=== PATIENT | male | born 1980 | race Caucasian/White ===

== ENCOUNTER 2017-09-14 21:11 | Emergency (ER) | payer BC ==
[~2017-09-14] VITALS: Ht 167.6 cm; Wt 90.7 kg
[~2017-09-14 21:11] MED LIST: LISINOPRIL-HCT1 EAC1 PO; PRAVASTATIN SOD40 MG PO; PREDNISONE20 MG PO; PROAIR HFA8.5 GM INH
[2017-09-14] MEDS ORDERED: FLUTICASONE PRO16 GM NAS (21:24)
[2017-09-14] MEDS ORDERED: HYDROXYZINE HCL25 MG PO (22:36)
== END 2017-09-14 22:50 | disposition home or self-care (01) ==
LOC: ED 21:11
DX: L50.9 Urticaria, unspecified (principal); I10 Essential (primary) hypertension; F17.200 Nicotine dependence, unspecified, uncomplicated; Z88.6 Allergy status to analgesic agent; Z88.8 Allergy status to other drugs, medicaments and biological substances; Z79.899 Other long term (current) drug therapy
CPT/HCPCS: 80053; 81001; 85025; 99283

== ENCOUNTER 2018-09-17 19:21 | Emergency (ER) | payer BC ==
[~2018-09-17] VITALS: Ht 167.6 cm; Wt 81.7 kg
[~2018-09-17 19:21] MED LIST changes: +FLUTICASONE PRO16 GM NAS; +HYDROXYZINE HCL25 MG PO
[2018-09-17] MEDS ORDERED: MECLIZINE HCL25 MG PO (21:37)
[2018-09-17] MEDS ORDERED: TRANSDERM-SCOP1 EACH TD (21:37)
== END 2018-09-17 21:51 | disposition home or self-care (01) ==
LOC: ED 19:21
DX: H81.399 Other peripheral vertigo, unspecified ear (principal); I10 Essential (primary) hypertension; E78.00 Pure hypercholesterolemia, unspecified; F17.200 Nicotine dependence, unspecified, uncomplicated; Z88.8 Allergy status to other drugs, medicaments and biological substances; Z79.899 Other long term (current) drug therapy
CPT/HCPCS: 70450; 80053; 85025; 99284-25

== ENCOUNTER 2018-12-28 11:10 | Emergency (ER) | payer BC ==
[~2018-12-28] VITALS: Ht 167.6 cm; Wt 83.9 kg
[~2018-12-28 11:10] MED LIST changes: +MECLIZINE HCL25 MG PO; +TRANSDERM-SCOP1 EACH TD
--- OUTSIDE RECORDS SUMMARY | 2018-12-28 11:12 | XMS ---
PreManage Notification: AMY MCCOY Security Clinical Quality Assurance Associate Events No recent Security Events currently on file CRITERIA MET - [facility] - 2 Visits in 30 Days CARE PROVIDERS There are no care providers on record at this time. Teresa has no Care Guidelines for this patient. [place] VISIT COUNT (12 MO.) [address] [facility] TOTAL 3 NOTE: Visits indicate total known visits. ED/C VISIT TRACKING (12 MO.) 12/28/2018 11:11 [facility] [place] TYPE: Emergency COMPLAINT: - SOB, ARM/LEG TINGLING 12/25/2018 20:38 [facility] TYPE: Emergency COMPLAINT: - SOB 09/17/2018 19:22 [facility] [place] TYPE: Emergency COMPLAINT: - DIZZY/WEAKNESS DIAGNOSES: - Dizziness and giddiness - Other manager long term care (current) drug therapy - Other peripheral vertigo, unspecified ear - Nicotine dependence, unspecified, uncomplicated - Pure hypercholesterolemia, unspecified - Allergy status to other drugs, medicaments and biological substances status - Essential (primary) hypertension INPATIENT VISIT TRACKING (12 MO.) No inpatient visits to display in this time frame [email or web address]
== END 2018-12-28 12:08 | disposition home or self-care (01) ==
LOC: ED 11:10
DX: F41.9 Anxiety disorder, unspecified (principal); I10 Essential (primary) hypertension; E78.00 Pure hypercholesterolemia, unspecified; J45.909 Unspecified asthma, uncomplicated; F17.200 Nicotine dependence, unspecified, uncomplicated; Z88.8 Allergy status to other drugs, medicaments and biological substances; Z88.6 Allergy status to analgesic agent; Z79.899 Other long term (current) drug therapy
CPT/HCPCS: 99284

== ENCOUNTER 2019-01-02 08:24 | Emergency (ER) | payer BC ==
[~2019-01-02] VITALS: Ht 167.6 cm; Wt 83.9 kg
--- OUTSIDE RECORDS SUMMARY | 2019-01-02 08:26 | XMS ---
PreManage Notification: AMY MCCOY Security Child Day Care Provider Events No recent Security Events currently on file CRITERIA MET - [facility] - 2 Visits in 30 Days CARE PROVIDERS LARA LERNER Physician Housing Assistant 12/29/2018-Current PHONE: Unknown Teresa has no Care Guidelines for this patient. [place] VISIT COUNT (12 MO.) 4 [facility] TOTAL 4 NOTE: Visits indicate total known visits. ED/UCC VISIT TRACKING (12 MO.) 01/02/2019 08:25 [facility] [place] TYPE: Emergency COMPLAINT: - BLURRY VISION/L ARM WEAKNESS 12/28/2018 11:11 [facility] [place] TYPE: Emergency COMPLAINT: - SOB, ARM/LEG TINGLING DIAGNOSES: - Pure hypercholesterolemia, unspecified - Allergy status to analgesic agent status - Allergy status to other drugs, medicaments and biological substances status - Essential (primary) hypertension - Unspecified asthma, uncomplicated - Nicotine dependence, unspecified, uncomplicated - Other nursing home (current) drug therapy - Anxiety disorder, unspecified - Shortness of breath 12/25/2018 20:38 [facility] [place] TYPE: Emergency COMPLAINT: - SOB DIAGNOSES: - Other nursing home (current) drug therapy - Unspecified asthma, uncomplicated - Dyspnea, unspecified - Shortness of breath - Allergy status to analgesic agent status - Essential (primary) hypertension - Nicotine dependence, unspecified, uncomplicated - Allergy status to other drugs, medicaments and biological substances status 09/17/2018 19:22 [facility] [place] TYPE: Emergency COMPLAINT: - DIZZY/WEAKNESS DIAGNOSES: - Dizziness and giddiness - Other local intermodal truck driver (current) drug therapy - Other peripheral vertigo, unspecified ear - Nicotine dependence, unspecified, uncomplicated - Pure hypercholesterolemia, unspecified - Allergy status to other drugs, medicaments and biological substances status - Essential (primary) hypertension INPATIENT VISIT TRACKING (12 MO.) No inpatient visits to display in this time frame [id number]
[2019-01-02] MEDS ORDERED: MECLIZINE HCL25 MG PO (08:31)
[2019-01-02] MEDS ORDERED: FLUOXETINE HCL20 MG PO (08:31)
[2019-01-02] MEDS ORDERED: TRANSDERM-SCOP1 EACH TD (08:31)
[2019-01-02] MEDS ORDERED: PLAVIX75 MG PO (09:55)
--- NOTE | 2019-01-03 21:32 | EKG ---
[facility] [address] [place] [address] Signed Normal sinus rhythm Normal ECG When compared with ECG of 25-DEC-2018 20:56, No significant change was found Confirmed by DEONNA FINK MD ([id number]) on 01/03/2019 9:32:01 PM Electronically Signed By: DEONNA FINK MD 01/03/19 2132 PATIENT NAME: AMY MCCOY Electrocardiogram DATE OF : 76 PHYSICIAN: DEONNA FINK MD REPORT #: [id number] REPORT IS CONFIDENTIAL AND NOT TO BE RELEASED WITHOUT AUTHORIZATION
== END 2019-01-02 10:17 | disposition home or self-care (01) ==
LOC: ED 08:24
DX: G45.9 Transient cerebral ischemic attack, unspecified (principal); I10 Essential (primary) hypertension; F17.200 Nicotine dependence, unspecified, uncomplicated; J45.909 Unspecified asthma, uncomplicated; Z71.6 Tobacco abuse counseling; Z88.6 Allergy status to analgesic agent; Z88.8 Allergy status to other drugs, medicaments and biological substances; Z79.899 Other long term (current) drug therapy
CPT/HCPCS: 70450; 70496; 70498; 71045; 80053; 81001; 85025; 85610; 85730; 93005; 93010; 99285-25; G0480; Q9967

== ENCOUNTER 2019-01-06 05:09 | Emergency (ER) | payer BC ==
[~2019-01-06] VITALS: Ht 167.6 cm; Wt 79.8 kg
[~2019-01-06 05:09] MED LIST changes: +FLUOXETINE HCL20 MG PO; +PLAVIX75 MG PO
--- OUTSIDE RECORDS SUMMARY | 2019-01-06 05:12 | XMS ---
PreManage Notification: AMY MCCOY Security Lard Renderer Events No recent Security Events currently on file CRITERIA MET - 6 ED Visits in [address] - [facility] - 2 Visits in 30 Days CARE PROVIDERS LARA LERNER Physician 12/29/2018-Current PHONE: Unknown LARA LERNER Primary Care Current PHONE: Unknown Teresa has no Care Guidelines for this patient. [place] VISIT COUNT (12 MO.) [address] [place] [address] TOTAL 6 NOTE: Visits indicate total known visits. ED/UCC VISIT TRACKING (12 MO.) 01/06/2019 05:10 [facility] [place] TYPE: Emergency COMPLAINT: - WEAKNESS 01/05/2019 17:01 [facility] [place] TYPE: Emergency DIAGNOSES: - Hypokalemia - Other chest pain - Dizziness and giddiness - CHEST PAIN 01/02/2019 08:25 [facility] [place] TYPE: Emergency COMPLAINT: - BLURRY VISION/L ARM WEAKNESS DIAGNOSES: - Paresthesia of skin - Allergy status to other drugs, medicaments and biological substances status - Tobacco abuse counseling - Other custodial (current) drug therapy - Essential (primary) hypertension - Nicotine dependence, unspecified, uncomplicated - Allergy status to analgesic agent status - Unspecified asthma, uncomplicated - Transient cerebral ischemic attack, unspecified 12/28/2018 11:11 [facility] [place] TYPE: Emergency COMPLAINT: - SOB, ARM/LEG TINGLING DIAGNOSES: - Pure hypercholesterolemia, unspecified - Allergy status to analgesic agent status - Allergy status to other drugs, medicaments and biological substances status - Essential (primary) hypertension - Unspecified asthma, uncomplicated - Nicotine dependence, unspecified, uncomplicated - Other custodial (current) drug therapy - Anxiety disorder, unspecified - Shortness of breath 12/25/2018 20:38 [facility] [place] TYPE: Emergency COMPLAINT: - SOB DIAGNOSES: - Other custodial (current) drug therapy - Unspecified asthma, uncomplicated - Dyspnea, unspecified - Shortness of breath - Allergy status to analgesic agent status - Essential (primary) hypertension - Nicotine dependence, unspecified, uncomplicated - Allergy status to other drugs, medicaments and biological substances status 09/17/2018 19:[address] [facility] [place] TYPE: Emergency COMPLAINT: - DIZZY/WEAKNESS DIAGNOSES: - Dizziness and giddiness - Other custodial (current) drug therapy - Other peripheral vertigo, unspecified ear - Nicotine dependence, unspecified, uncomplicated - Pure hypercholesterolemia, unspecified - Allergy status to other drugs, medicaments and biological substances status - Essential (primary) hypertension INPATIENT VISIT TRACKING (12 MO.) No inpatient visits to display in this time frame [email or web address]
[2019-01-06] MEDS ORDERED: LIPITOR40 MG PO (05:26)
== END 2019-01-06 07:56 | disposition home or self-care (01) ==
LOC: ED 05:09
DX: R55 Syncope and collapse (principal); R00.2 Palpitations; R42 Dizziness and giddiness; I10 Essential (primary) hypertension; F17.200 Nicotine dependence, unspecified, uncomplicated; J45.909 Unspecified asthma, uncomplicated; Z88.6 Allergy status to analgesic agent; Z88.8 Allergy status to other drugs, medicaments and biological substances; Z79.899 Other long term (current) drug therapy
CPT/HCPCS: 36415; 84443; 93225; 93226; 93227; 99284

== ENCOUNTER 2022-08-19 18:23 | Inpatient (IN) | payer BC ==
[~2022-08-19] VITALS: Ht 167.6 cm; Wt 85.0 kg
[~2022-08-19 18:23] MED LIST changes: +ACETAMINOPHEN500 MG PO; +LIPITOR40 MG PO; +OXYCODON-ACETA1 EAC2 PO
[2022-08-19] MEDS ORDERED: METRONIDAZOLE500 MG PO (18:52)
[2022-08-19] MEDS ORDERED: CIPROFLOXACIN500 MG PO (18:52)
--- NOTE | 2022-08-19 23:59 | NUR ---
pt ARRIVES TO MS AT 2300. ORIENTATION TO ROOM PROVIDED, WRITTEN AND VERBAL EDUCATION PROVIDED. URINAL EMPTIED. IV SITE FLUSHED WNL, BRISK BLOOD RETURN. IV ANTIBIOTIC AND IVF INFUSING WNL. CALL LIGHT IN REACH. CLEAR LIQUIDS PROVIDED.
--- NOTE | 2022-08-20 07:00 | NUR ---
NO ACUTE EVENTS OVERNIGHT. VSS, NAD, NO C/O. HANDED OFF CARE OF PATIENT TO DAY NURSE UPON GIVING BEDSIDE SHIFT REPORT.
--- NOTE | 2022-08-20 07:25 | NUR ---
bedside report from tucker ureña, pt awake, denies needs, white board updated, iv ns @125 fusing, cl liq diet, kcl 3.4 this am.
--- NOTE | 2022-08-20 10:41 | NUR ---
sl iv abx finished, 4 mg ms given for increasing abd. pain, cramp/spasms. at side. pt watching tv. call light in reach.
--- NOTE | 2022-08-20 10:51 | NUR ---
WENT IN CHECKED ON PATIENT. EMPTIED HIS URINAL.
--- NOTE | 2022-08-20 11:37 | NUR ---
in with dr llanos for rounds, pt pain improved after ms - bm noted today. discussed plan of care to monitor abx, fluids. family in room.
--- NOTE | 2022-08-20 16:40 | NUR ---
pt reports headache improved, after drinking mt. dew soda - awake and visiting with family, po tylenol given for abd pain that is lessend. pt void 800 ml of pale urine in urinal. call light in reach - iv fusing.
--- NOTE | 2022-08-20 17:30 | NUR ---
pt amb to br to have bm and void. - called rn in to show klarissa red blood with bm, stool not visible to rn as it was covered with paper - pt urinated in toilet also - diluted blood - pt reports that every wipe of paper was smears of blood, pt has history of hemroids, and notes this may be similar? noted blood to drip in to toilet as he was sitting and resolved after wipe and back to bed - no further drainage - pharmacist in charge owner notified. dr bush notified. continue to monitor.
--- NOTE | 2022-08-20 19:45 | NUR ---
ASSUMED CARE OF PATIENT UPON RECEIVING BEDSIDE HANDOFF REPORT FROM DAY RN. PT WITH NAD, VSS, NO C/O. WILL CONTINUE TO MONITOR AND FOLLOW POC.
--- NOTE | 2022-08-20 22:00 | NUR ---
CALL LIGHT ANSWERED. pt COMPLAINS OF PAIN AT IV AND UP RIGHT ARM. HARD KNOT NOTED ON RIGHT ARM ABOVE IV INSERTION SITE. IV ANTIBIOTIC STOPPED, IV D/C'D WNL. WARM COMPRESS APPLIED PER POLICY RECOMMENDATION, RIGHT ARM ELEVATED ON PILLOW. PRIMARY RN AND MD NOTIFIED. IV ANITIBIOTIC NOW INFUSING IN RIGHT WRIST IV SITE WNL. URINAL EMPTIED, ICE WATER PROVIDED. pt RATES PAIN 4/10 IN ABDOMEN. REQUESTS PO TYLENOL AVAILABE. CALL LIGHT AND PERSONAL SUPPLIES IN REACH.
--- NOTE | 2022-08-21 01:35 | NUR ---
PT C/O WAKING UP DIAPHORETIC 3 TIMES. VSS, NAD, NO C/O CP OR PRESSURE REPORTED.
--- NOTE | 2022-08-21 06:57 | NUR ---
PT WITH NO ADVERSE EVENTS OVERNIGHT. VSS, NO C/O. WILL CONTINUE TO MONITOR AND FOLLOW POC UNTIL PASSING BEDSIDE SHIFT REPORT TO DAY NURSE.
[2022-08-21] MEDS ORDERED: VENTOLIN HFA18 GM INH (07:32)
[2022-08-21] MEDS ORDERED: ALPRAZOLAM0.5 MG PO (09:11)
--- NOTE | 2022-08-21 09:12 | NUR ---
MED REC COMPLETE
--- NOTE | 2022-08-21 11:05 | NUR ---
PATIENT IS TALKING ON PHONE.THE PLAN IS THE PATIENT WILL GO HOME WHEN HE IS DISCHARGED. NO DME NEEDED.
--- NOTE | 2022-08-21 11:11 | NUR ---
PT REPORTS 2ND BM TODAY WITH LISSY RED BLOOD AFTER BM - WHEN HE WIPES. DR AWARE OF BLEEDING - NOTED H/H STABLE AND INCREASE TODAY. PT AWARE THAT DR IS MONITORING AND WILL CALL AGAIN TO NOTIFY. AXIETY IS IMPROVED PER REPORT.
--- NOTE | 2022-08-21 11:22 | NUR ---
PATIENT TOOK A SHOWER. INDEPENDENT. IN ROOM. HE DID ORAL CARE. BED LINENS CHANGED. LAYING DOWN,
--- NOTE | 2022-08-21 20:09 | NUR ---
THIS RN IN ROOM TO ANSWER CALL LIGHT. IV PUMP ALARMING, ADDITIONAL VTBI ADDED TO PUMP INFUSING MAINTANENCE FLUIDS. PT DENIES FURTHER NEEDS, WATCHING TV IN BED WITH SON AT BEDSIDE.
--- NOTE | 2022-08-21 21:35 | NUR ---
CALL LIGHT ANSWERED. pt COMPLAINS OF HEARTBURN, PRN MEDICATION ORDERED NIO AND ADMINISTERED. SCHEDULED MEDICATIONS ADMINISTERED. VSS. IV SITE FLUSHED WNL, IV ANTIBIOTIC INFUSING ORDERED. CALL LIGHT IN REACH.
--- NOTE | 2022-08-21 23:49 | NUR ---
IV ANTIBIOTIC INFUSING WNL. pt UP TO RESTROOM INDEPENDENTLY, UNMEASURED VOID. BACK IN BED. CALL LIGHT IN REACH. DENIES ANY NEEDS AT THIS TIME.
--- NOTE | 2022-08-22 07:15 | NUR ---
report from tucker ureña, white board updated - pt denies needs. call light in reach.
--- NOTE | 2022-08-22 07:54 | NUR ---
in room to check alarm on iv, wnl - reset pump with iv abx - site wnl. pt reports pain improved, no further blood with stools. void wnl - eating well - hopeful to go home today.
[2022-08-22] MEDS ORDERED: NICOTINE PATCH1 EACH TD (08:05)
[2022-08-22] MEDS ORDERED: METRONIDAZOLE500 MG PO (08:05)
[2022-08-22] MEDS ORDERED: LEVOFLOXACIN750 MG PO (08:06)
--- NOTE | 2022-08-22 13:38 | NUR ---
CONNECTED WITH PT HE WAS DC'D. PT THANKED STAFF, GAVE BLESSING
== END 2022-08-22 10:50 | disposition home or self-care (01) | DRG 392 ==
LOC: ED 18:23 → MS 22:16
PROVIDERS: ADMIT Family Medicine; ATTEND Internal Medicine
DX: K57.32 Diverticulitis of large intestine without perforation or abscess without bleeding (principal); Z20.822 Contact with and (suspected) exposure to COVID-19; R11.2 Nausea with vomiting, unspecified; I10 Essential (primary) hypertension; F17.210 Nicotine dependence, cigarettes, uncomplicated; E78.5 Hyperlipidemia, unspecified; F41.9 Anxiety disorder, unspecified; Z87.442 Personal history of urinary calculi; Z90.49 Acquired absence of other specified parts of digestive tract; Z90.89 Acquired absence of other organs; Z98.890 Other specified postprocedural states; Z88.0 Allergy status to penicillin; Z88.8 Allergy status to other drugs, medicaments and biological substances; Z91.011 Allergy to milk products; Z79.899 Other long term (current) drug therapy
CPT/HCPCS: 36415; 74177; 80053; 81001; 83690; 83735; 84100; 85025; A9270; C9803; J0692; J1650; J2270; J2405; J7030; J7121; U0003

== ENCOUNTER 2022-10-04 10:51 | Day surgery (SDC) | payer BC ==
[~2022-10-04] VITALS: Ht 167.6 cm; Wt 86.4 kg
[~2022-10-04 10:51] MED LIST changes: +ALPRAZOLAM0.5 MG PO; +CIPROFLOXACIN500 MG PO; +LEVOFLOXACIN750 MG PO; +METRONIDAZOLE500 MG PO; +NICOTINE PATCH1 EACH TD; +VENTOLIN HFA18 GM INH
[2022-10-04] MEDS ORDERED: ZYRTEC10 M3 PO (11:15)
[2022-10-04] MEDS ORDERED: CIALIS5 MG PO (11:15)
--- NOTE | 2022-10-04 12:54 | NUR ---
10/04/22 Stephany4 Teresa Walker 1245 PT ARRIVED TO PACU ON 2L VIA NC, PT WAKES EASILY AND DENIES CONCERNS. PLAN OF CARE DISCUSSED AND PT EASILY FALLS BACK TO SLEEP OFF AND ON.
--- NOTE | 2022-10-05 14:44 | PATH ---
[facility] [address] [place] [address] Signed SPECIMEN(S): A RECTAL POLYP SPECIMEN SOURCE: A. RECTAL POLYP CLINICAL HISTORY: Pre: Acute diverticulitis. Post: Diverticulosis, rectal polyp. FINAL PATHOLOGIC DIAGNOSIS: Rectal polyp, biopsies: - Fragments of hyperplastic polyp. AMB:emh:C2HAI MICROSCOPIC EXAMINATION: Histologic sections of all submitted blocks are examined by light microscopy. These findings, together with the gross examination, support the pathologic diagnosis. GROSS DESCRIPTION: The specimen, labeled and designated "Stephenie rectal polyp," is received in formalin and consists of four story soft tissue fragments, ranging from 0.1-0.4 cm. Entirely submitted in (A1). VB (under the direct supervision of a pathologist) The Gross Description was prepared using a voice recognition system. The report was reviewed for accuracy; however, sound-alike word errors, addition and/or deletions may occur. If there is any question about this report, please contact Client Services. PERFORMING LABORATORY: The technical component was performed by [facility], [address] [place] [address] (CLIA# [id number]). Professional interpretation was performed by [facility], [address] [address] (CLIA#: [id number]). Diagnostician: Payton Baca MD Pathologist Electronically Signed 10/05/2022 PATIENT NAME: AMY MCCOY PATHOLOGY DATE OF : 76 REPORT #: [id number] PHYSICIAN: OLIVIA MEEKS PCP: LARA LERNER PAC REPORT IS CONFIDENTIAL AND NOT TO BE RELEASED WITHOUT AUTHORIZATION
--- NOTE | 2022-10-06 10:24 | OR ---
[facility] [address] [place], [place] [address] Signed DATE OF OPERATION: 10/04/2022 SURGEON: Maryann Beyer MD PREOPERATIVE DIAGNOSIS: Recurrent bouts of diverticulitis. POSTOPERATIVE DIAGNOSES: 1. Diverticulosis sigmoid and left colon. 2. Small rectal polyp. PROCEDURE: Total colonoscopy to cecum with cold morcellation polypectomy x1. ANESTHESIA: Intravenous sedation; fentanyl 200 mcg and Versed 6 mg. INDICATION: This 42-year-old white man is a patient of Lara Lerner. He was seen in the emergency room on August 19, 2022 with acute diverticulitis. He has manifestation of left lower abdominal pain which has been going on for several weeks. He has a history of diverticulitis and treated with Cipro and Flagyl in the past. He had an episode in June with similar type. He has never shown signs of abscess. He did undergo appendectomy by Dr. Kenny Kendall in 2020. He is admitted at this time to undergo colonoscopy having had acute diverticulitis settled down with antibiotics and dietary modification (low-fiber diet). He understands risk of bleeding, infection, and perforation related to colonoscopy and wished to proceed. FINDINGS: The prep was excellent. Complete colonoscopy was undertaken of the cecum without question. He had diverticulosis of the sigmoid and portions of the left colon. There was no sign of stricture or neoplasm. He did have a polyp of the rectum, which was excised. DESCRIPTION OF PROCEDURE: The patient was brought to the endoscopy suite and placed in the lateral decubitus position, given intravenous sedation to the point of slurred speech and nystagmus. Digital rectal examination was normal including normal prostate. The Olympus video colonoscope was passed in the rectum and manipulated throughout the Electronically Signed By: MARYANN BEYER MD 10/06/22 1024 PATIENT NAME: AMY MCCOY OPERATIVE REPORT DATE OF : 76 REPORT #: [id number] PHYSICIAN: MARYANN BEYER MD PCP: LARA LERNER PAC REPORT IS CONFIDENTIAL AND NOT TO BE RELEASED WITHOUT AUTHORIZATION [facility] [address] [place], [place] [address] Signed colon noting diverticular changes of the sigmoid. The scope was ultimately passed to the cecum. The ileocecal valve and appendiceal orifice appeared normal. The scope was withdrawn from that point and examination throughout showed no sign of abnormality until the mid descending colon and sigmoid where diverticular changes were noted. There was a small polyp of the rectum which was probably hyperplastic, this was excised with cold morcellation technique. Scope was removed and the patient was taken to the recovery room in good condition. CONCLUDING DIAGNOSES: 1. Diverticulosis. 2. Small polyp. PLAN: Consideration has been made for elective sigmoid resection given his recurrent bouts of diverticulitis. He is rather motivated to that approach interestingly. We will see him back in the office in a month or so and allow him to continue to clear his most recent episode of diverticulitis. A regular diet is perfectly fine at this point. MD KIRSTEN Zee/EARL /[id number] cc: Lara Lerner PA-C Copies: ~ Electronically Signed By: MARYANN BEYER MD 10/06/22 1024 PATIENT NAME: AMY MCCOY OPERATIVE REPORT DATE OF : 76 REPORT #: [id number] PHYSICIAN: MARYANN BEYER MD PCP: LARA LERNER PAC REPORT IS CONFIDENTIAL AND NOT TO BE RELEASED WITHOUT AUTHORIZATION
== END 2022-10-04 13:33 | disposition home or self-care (01) ==
LOC: OPS 10:51 → DS 10:51 → OPS 12:00 → DS 12:00 → OPS 13:33
PROVIDERS: ATTEND Surgery
PROC: 0DBP8ZX Excision of Rectum, Via Natural or Artificial Opening Endoscopic, Diagnostic (ICD-10-PCS; principal; 2022-10-04 12:00)
DX: K57.30 Diverticulosis of large intestine without perforation or abscess without bleeding (principal); K62.1 Rectal polyp
CPT/HCPCS: 99153; G0500; J2250; J3010

== ENCOUNTER 2022-12-07 10:56 | Inpatient (IN) | payer BC ==
[~2022-12-07] VITALS: Ht 167.6 cm; Wt 87.7 kg
--- NOTE | ~2022-12-07 | DS ---
[facility] [address] [place], [place] [address] Draft ADMISSION DATE: 12/21/2022 DISCHARGE DATE: 12/24/2022 REASON FOR ADMISSION: Intractable diverticular disease for sigmoid colectomy. HISTORY OF PRESENT ILLNESS: This 42-year-old white man is a patient of Lara Lerner and has had recurrent bouts of acute diverticulitis proved by clinical findings as well as CT scan. He has undergone laparoscopic appendectomy by me in 2020. Colonoscopy demonstrated no evidence of neoplasm, only diverticulosis. Given his chronic recurrent episodes of significant left lower abdominal pain, which are disabling and requiring treatment, consideration was made for sigmoid colectomy for intractable diverticular disease. He is admitted for sigmoid colectomy at this time. PERTINENT PHYSICAL EXAMINATION: GENERAL: Relatively healthy-appearing white man, in no acute distress. CHEST: Clear. HEART: Regular without murmur. ABDOMEN: Soft. There is no palpable mass. EXTREMITIES: Show no clubbing, cyanosis, or edema. HOSPITAL COURSE: On December 21, 2022, he underwent sigmoid colectomy with side-to-end coloproctostomy as well as splenic flexure mobilization. A drain was placed as well. He was given clear liquids immediately postoperatively. He has underlying anxiety and did have some anxiety approximately 24 hours after operation, which was well addressed with Ativan intravenously administered. He was advanced in his clear liquid diet to full liquid and ultimately a solid diet which he tolerated well. By the day of discharge, he is ambulating well, had bowel movements and reliable passage of flatus. Incision is healing well and the drain has been removed. He was discharged to home in good condition. DISCHARGE MEDICATIONS: Discharge medications will include: 1. Nicotine patch 14 mg per 24 hours one transdermal each day dispense #30, refill 3. 2. Percocet 5/325, 1-2 p.o. q.6 hours as needed for pain #10. 3. Continued medication of lisinopril/hydrochlorothiazide 1 tablet p.o. daily as well as alprazolam 0.5 mg p.o. two times a day as needed for anxiety. 4. 5 mg p.o. daily. 5. Cetirizine, Zyrtec 10 mg p.o. daily. PATIENT NAME: AMY MCCOY DISCHARGE SUMMARY DATE OF : 76 REPORT #: [id number] PHYSICIAN: MARYANN BEYER MD PCP: LARA LERNER PAC REPORT IS CONFIDENTIAL AND NOT TO BE RELEASED WITHOUT AUTHORIZATION [facility] [address] [place], [place] [address] Draft DISCHARGE DIAGNOSES: 1. Chronic recurrent sigmoid diverticulitis, status post open cholecystectomy with side-to-end coloproctostomy and splenic flexure mobilization December 21, 2022. 2. Smoking. 3. Anxiety disorder. 4. Hypertension. FOLLOWUP PLANS: He is return to see me in approximately four weeks. He will call tomorrow when the office is open to schedule an appointment. He is instructed to lift no more than 20 pounds for the next 4 weeks. He is permitted to work when he feels ready within those restrictions. He will keep Steri-Strips in place and is permitted to shower. MD KIRSTEN Zee/CHRISL /[id number] cc: PÉREZ De La Torre Copies: ~ PATIENT NAME: AMY MCCOY DISCHARGE SUMMARY DATE OF : 76 REPORT #: [id number] PHYSICIAN: MARYANN BEYER MD PCP: LARA LERNER PAC REPORT IS CONFIDENTIAL AND NOT TO BE RELEASED WITHOUT AUTHORIZATION
[~2022-12-07 10:56] MED LIST changes: +CIALIS5 MG PO; +ZYRTEC10 M3 PO
[2022-12-19 10:14] VITALS: BP 115/79
[2022-12-21 07:13] VITALS: BP 124/86
--- NOTE | 2022-12-21 08:41 | NUR ---
0835-PATIENT UP TO RESTROOM.
--- NOTE | 2022-12-21 12:26 | NUR ---
PT ALERT, ORIENTED AND SUPPORTED BY HIS RICO. PT SEEMS READY FOR HELP SURGERY WILL BRING. ALL QUESTIONS ASKED ANSWERED. PT REQUESTED PRAYER WILL FOLLOW NEEDED
--- NOTE | 2022-12-21 12:30 | NUR ---
12/21/22 Oswaldo0 Vivian Alvarez SN 1226 PATIENT ARRIVES TO PACU UNRESPONSIVE TO PAINFUL STIMULI. SNORING NOTED. OCCASIONAL JAW THRUST REQUIRED. O2 MASK AT 6 LITERS.
--- NOTE | 2022-12-21 13:45 | NUR ---
REPORT RECEIVED FROM INFORMATION ANALYST AND PT. ARRIVED VIA BED. HE IS DROWSY BUT AWAKENS TO VOICE. C/O 10/10 ABDOMINAL PAIN. ACTICOAT DRESSING HAS SMALL AMOUNT OF SHADOWING, BUT DRY AND INTACT. ASSESSMENT COMPLETED. PT. IS COVERED IN HIVES ACROSS BODY. REPORTS SEVERE ALLERGY TO IBUPROFEN AND RECEIVED TORADOL IN OR. WILL CONTACT ED. ON 4L O2 NC AND CPOX IN PLACE. CALL LIGHT IN REACH AND AT BEDSIDE.
[2022-12-21 14:00] VITALS: BP 133/80
--- NOTE | 2022-12-21 14:06 | NUR ---
PT. ARRIVED WITH HIVES AND REPORTS HAVING SEVERE ALLERGY TO IBUPROFEN AND WAS GIVEN TORADOL IN PACU. MD CALLED AND ORDERS GIVEN.
[2022-12-21 15:07] VITALS: BP 124/78
--- NOTE | 2022-12-21 15:21 | NUR ---
FOCUSED ASSESSMENT COMPLETED. SURGICAL DRESSING REMAINS UNCHANGED. HIVES IMPROVED AND MUCH LESS RED. PT. IS DROWSY BUT AWAKENS EASILY TO VOICE. BOWELTONES RARE THROUGHOUT. PT. REPORTS PAIN IS TOLERABLE. BROUGHT BLANKETS. STAT LOCK PLACED ON CATH. CALL LIHGT IN REACH.
[2022-12-21 16:22] VITALS: BP 131/80
--- NOTE | 2022-12-21 16:25 | NUR ---
FOCUSED ASSESSMENT COMPLETED. PT. IS MORE ALERT AND ABLE TO ANSWER QUESTIONS. SURGICAL DRESSING REMAINS UNCHANGED. PT. DENIES PAIN EXCEPT WITH PALPATION. VITALS STABLE. AT BEDSIDE.
--- NOTE | 2022-12-21 17:00 | NUR ---
PT. AMBULATED 1 LAP AROUND THE UNIT WITH 1PA AND TOLERATED WELL. REPORTS GAS PAIN IN RIGHT UPPER ARM RESOLVED AFTER WALKING.
--- NOTE | 2022-12-21 18:15 | NUR ---
PT. REQUESTS CATH. DC. MAY CALLED AND VERBAL ORDER GIVEN. REMOVED WITH CATH INTACT. SBA TO BATHROOM TO TRY AND VOID. WITH HIM
[2022-12-21 18:20] VITALS: BP 137/87
--- NOTE | 2022-12-21 19:49 | NUR ---
ASSESSMENT COMPLETE. MIDLINE DRESSING WITH SMALL AMOUNT OF DRAINAGE NOTED, HYPOACTIVE BOWEL TONES. MARCO DRAIN EMPTIED 30MLS SEROSANG FLUID. ABD MILDLY DISTENDED. PT C/O 04/07 ABD PAIN, GIVEN PRN OFRIMEV. PT DENIES FURTHER NEEDS AT THIS TIME. AT BEDSIDE AND CALL LIGHT IN REACH.
--- NOTE | 2022-12-21 20:15 | NUR ---
PT AMBULATED UNIT HALLWAY X2 WITH .
--- NOTE | 2022-12-21 20:44 | NUR ---
PT C/O 8/10 ABD PAIN, STATES OFRIMEV MINIMALLY HELPFUL AT THIS TIME. DISCUSSED AVOIDING OPIATE PAIN MEDICATIONS PER DR BEYER, OFRIMEV ADMINISTRATION AND SCHEDULING. PT VERBALIZED UNDERSTANDING, CONTINUES TO RATE PAIN 8/10, REQUESTED AND GIVEN 2MG MORPHINE. PT DENIES FURTHER NEEDS AT THIS TIME. CALL LIGHT IN REACH. AT BEDSIDE.
--- NOTE | 2022-12-21 21:41 | NUR ---
PT REQUESTED GOING FOR A WALK. UNPLUGGED HIS IV POLE AND DISCONNECTED HIS CPOX. PT IS AMBULATING IN THE DELONG WITH HIS .
[2022-12-21 21:50] VITALS: BP 121/74
--- NOTE | 2022-12-21 22:05 | NUR ---
PT AMBULATED SEVERAL TIMES AROUND THE HALLS WITH HIS . PT TOLERATED THE AMBULATING WELL. PT WAS SHOWN HOW TO SPLINT HIS ABD FOR COMFORT. PT IS BACK IN BED. SCDS ARE ON , CPOX IS ON . PLACED A NEW BAG OF ICE TO ABD. PT APPEARS TO BE COMFORTABLE. NO OTHER NEEDS. CALL LIGHT IN REACH . PERSONAL ITEMS ON TABLE AT BEDSIDE.
--- NOTE | 2022-12-22 00:13 | NUR ---
PT C/O 03/07 ABD PAIN. DISCUSSED OFRIMEV ADMINISTRATION, PT UNABLE TO TOLERATE PAIN AT THIS TIME. REQUESTED NAD GIVEN PRN MORPHINE, SEE EMAR. PT DENIES FURTHER NEEDS AT THIS TIME. CALL LIGHT IN REACH.
--- NOTE | 2022-12-22 01:18 | NUR ---
REPORT RECEIVED FROM OFF GOING RN. PT IS CURRENTLY ASLEEP ON HIS BED. HIS IS ROOMING IN. PT HAS CALLL LIGHT IN REACH AND PERSONAL BELONGINGS AT BEDSIDE.
--- NOTE | 2022-12-22 02:10 | NUR ---
HANDOFF REPORT GIVEN TO AZALEA SCOTT.
--- NOTE | 2022-12-22 02:14 | NUR ---
REPORT RECEIVED FROM NORBERTO TRISTAN, ASSUMING CARE OF PT.
--- NOTE | 2022-12-22 02:16 | NUR ---
PT AWAKE AND ALERT, TYLENOL GIVEN PER ORDER FOR PAIN CONTROL, NEW LR HUNG AND INFUSING WELL AT 85ML/HR, IV SITE INTACT, ASSESSMENT COMPLETED, ICE BAG TO ABDOMIN, PT ATTEMPTING TO REST.
[2022-12-22 02:22] VITALS: BP 104/74
--- NOTE | 2022-12-22 03:20 | NUR ---
RN CALLED TO ROOM, PT REQUESTING MORPHINE FOR ABDOMINAL PAIN, MED PER ORDER WITH 2MG IV. IV PATENT, PT DENIES OTHER REQUESTS.
--- NOTE | 2022-12-22 04:25 | NUR ---
RN CALLED TO ROOM TO CHECK ON ALARM CPOX NOTED TO BE AT 88%, SATS INCREASED TO 92% PER REPORT OF NORBERTO RN, PLAN TO MONITOR AND WILL PLACE ON OXYGEN IF SATS DROP AGAIN, PT WITHOUT OTHER REQUESTS.
[2022-12-22 06:25] VITALS: BP 113/65
--- NOTE | 2022-12-22 06:25 | NUR ---
PT AWAKE AND ALERT, VS STABLE, ASSESSMENT COMPLETED, MARCO OUT 15ML SERO SANG FLUID, ABD DRESSING DRY AND INTACT, IV PATENT, RT A/B GIVEN, ICE BAG TO ABD, VOIDING WELL PER URINAL, FRESH WATER GIVEN.
--- NOTE | 2022-12-22 06:50 | NUR ---
PT REQUESTING PAIN MED FOR ABD PAIN, MEDICATED WITH MORPHINE 2 MG IV PER ORDER, PT RESTING WITHOUT OTHER REQUESTS.
--- NOTE | 2022-12-22 08:30 | NUR ---
REPORT RECEIVED FROM NIGHT RN AND PT CARE RESUMED. PT. IS ALERT AND ORIENTED TO ALL. HE C/O 7/10 ABDOMINAL PAIN AND REFUSES TYLENOL. PRN SHOW HOST OR HOSTESS. ASSESSMENT COMPLETED AND MEDS ADMIN. PT. ENCOURAGED TO AMBULATE. AT BEDSIDE. BROUGHT CLEARS.
--- NOTE | 2022-12-22 08:46 | NUR ---
Admin morphine 2mg IV at this time for reported 7/10 abdominal pain. Patient denies needs at this time.
[2022-12-22 10:01] VITALS: BP 124/85
--- NOTE | 2022-12-22 13:14 | NUR ---
Pt walking in hallway, states feeling "pain and anxiety", states takes BID alprazolam, [place] [facility] [place] received OK to take [place] dose. Verified with pharmacy and patient.
--- NOTE | 2022-12-22 13:32 | NUR ---
Pt medicated with home dose alprazolam and scheduled IV ABX infusing. Discussed with patient medications, pain control, plan of care. Pt and his agreeable. Made plans to round/discuss pain options. Call light in reach.
--- NOTE | 2022-12-22 13:40 | NUR ---
PT. STILL C/O PAIN UNDER BOTH CLAVICLES AND BELOW RIBS. BOWEL TONES BECOMING MORE ACTIVE AND ABDOMEN MILDLY DISTENDED. DENIES CHEST PAIN. STATES IT FEELS SIMILAR "TO GAS BUBBLES". PT. ENCOURAGED TO CONTINUE AMBULATING. WILL CONTINUE TO MONITOR.
[2022-12-22 14:14] VITALS: BP 132/81
--- NOTE | 2022-12-22 14:51 | NUR ---
PT CALLING OUT STATING HE IS IN PAIN. THIS RN TO ROOM. BOWEL TONES ACTIVE. PT REPORTS 12/10 PAIN IN ABDOMEN AND LOWER CHEST STATING "IT FEELS LIKE THERE IS A NEEDLE IN MY CHEST." PT ANXIOUS. DR. BEYER TO BEDSIDE. NEW ORDERS GIVEN, ORDERS ENTERED, REPEAT BACK PERFORMED. PTS PRIMARY RN AND ADJUNCT FACULTY INSTRUCTOR UPDATED. BED RAILS UP. CALL LIGHT WITHIN REACH. X-RAY CALLED FOR IMAGING.
--- NOTE | 2022-12-22 16:44 | NUR ---
PT CALL LIGHT ON. PT REPORTS IV PUMP IS ALARMING, IV FLUID BAG EMPTY. PT STATES "I DON'T KNOW WHAT YOU GUYS DID BUT I FEEL A TON BETTER." NEW IV FLUIDS HUNG. PT ENCOURAGED TO CONTINUE AMBULATING AND TAKING HIS ANXIETY MEDICATION. PT UP TO AMBULATE IN DELONG WITH STAND BY ASSIST FROM SIGNIFICANT OTHER. NO ADDITIONAL NEEDS AT THIS TIME. PTS PRIMARY RN UPDATED.
--- NOTE | 2022-12-22 17:37 | NUR ---
PT ON PHONE WITH FAMILY. DENIES NEEDS AT THIS TIME.
--- NOTE | 2022-12-22 18:08 | NUR ---
PT. CONTINUES TO AMBULATE AND REPORTS PAIN HAS IMPROVED. STILL ANXIOUS BUT UNDERSTANDS MED SCHEDULE.
[2022-12-22 18:43] VITALS: BP 127/83
--- NOTE | 2022-12-22 19:08 | NUR ---
SHIFT REPORT RECEIVED FROM JELLY TRISTAN, PT REQUESTING MEDICATION THAT HE HAD EARILIER FOR ANXIETY, PLAN TO REVIEW EMAR AND MEDICATE PER ORDER.
[2022-12-22 19:42] VITALS: BP 130/90
--- NOTE | 2022-12-22 19:42 | NUR ---
RN TO ROOM, PT ALERT AND ORIENTED, DESIRES ATIVAN AND TYLENOL PER ORDER FOR PAIN AND TO KEEP ANXIETY UNDER CONTROL, PT MEDICATED PER ORDER WITH 1 MG ATIVAN AND TYLENOL PER ORDER. VS AND ASSESSMENTS DONE, IV PATENT AND SITE INTACT, INFUSING LR AT 85ML/HR, ICE PACK GIVEN TO ABDOMIN PER REQUESTS, MARCO EMPTIED FOR 5ML SERO SANG FLUID. PT INSTRUCTED THAT ATIVAN MAY MAKE HIM DIZZY UPON ARISING, AT BEDSIDE.
--- NOTE | 2022-12-22 21:00 | NUR ---
PT UP TO AMBULATE IN DELONG WITH 'S ASSISTANCE, PT TOLERATED WELL APPROXIMATELY 2 LAPS IN HALLS.
--- NOTE | 2022-12-22 21:25 | NUR ---
ROUNTINE HS MEDS GIVEN, PT FEELING MORE COMFORTABLE, REQUESTING WARM PACK FOR NECK DISCOMFORT, GIVEN PER REQUESTS. SCDS REPLACED, PT ATTEMPTING TO REST, PLANS TO SPEND THE NIGHT, SUPPORTIVE.
--- NOTE | 2022-12-22 23:25 | NUR ---
PT APPEARS TO SLEEP, RESP EVEN AND REG, WITHOUT DISTRESS.
--- NOTE | 2022-12-22 23:50 | NUR ---
PT REQUESTING MEDICATION FOR ANXIETY AND DISCOMFORT, MEDICATED WITH ATIVAN 1MG PER ORDER, PT ATTEMPTING TO REST.IV PATENT.
--- NOTE | 2022-12-23 00:18 | NUR ---
PT C/O UPPER ABDOMINAL PAIN 5/10, REQUESTING ADDITIONAL MED, MEDICATED WITH MORPHINE 2MG IV, PT ATTEMPTING TO REST.
--- NOTE | 2022-12-23 00:30 | NUR ---
PT REQUESTS TO KEEP SCDS OFF AT THIS TIME.
--- NOTE | 2022-12-23 01:00 | NUR ---
RN CALLED TO ROOM, PT STANDING UP IN ROOM WITH BY HIS SIDE, REPORTS "HE IS WHINNING AGAIN, AND MIGHT GO HOME", PT STATES HE IS STILL PAINFUL IN UPPER QUADRANTS AND NOT SURE WHAT TO DO, ENCOURAGED PT TO AMBULATE IN THE HALLS, RN WALKED WITH PT X2 LAPS, PT BELCHING FREQUENLY BUT NO C/O NAUSEA, ABD REMAINS DISTENDED BUT APPEARS NOT MORE THAN AT 1942 ASSESSMENT, PT STATES HIS BACK IS SORE FROM LAYING IN BED, EGG CRATE PLACED ON BED, PT BACK TO BED, PT ENCOURAGED TO ATTEMPT TO LAY ON SIDES TO HELP MOVE GAS, PT RESTING WITH EYES CLOSED, APPEARS MORE COMFORTABLE.
--- NOTE | 2022-12-23 01:40 | NUR ---
PT ASLEEP, SATS 88-90%, PLAN TO MONITOR.
--- NOTE | 2022-12-23 02:20 | NUR ---
PT ASLEEP, CPOX ALARMING, SATS NOTED TO BE 84-87%, PT AWAKEN AND PLACED ON O2 AT 2L/MIN, RT TYLENOL HUNG AND INFUSING WELL, PT STATES HE CAME REALLY CLOSE TO PASSING GAS AND STATES HE IS FEELING BETTER, PT BACK TO SLEEP, OXYGEN SAT UP TO 95%.
--- NOTE | 2022-12-23 02:40 | NUR ---
RT NOTIFIED OF PLACEMENT OF OXYGEN AT 2L/NC FOR LOW SATS.
--- NOTE | 2022-12-23 04:49 | NUR ---
PT TO NURSES STATION "HE NEEDS SOMETHING NOW" NO PAIN, MED WITH PRN ATIVAN. PT STATES THAT WILL HELP ME SLEEP? PT SNORING BEFORE RN LEFT ROOM. ON COUCH AWAKE.
[2022-12-23 05:30] VITALS: BP 139/93
--- NOTE | 2022-12-23 06:55 | NUR ---
PT UP AMBULATING IN DELONG WITH , REPORTS SOME DISCOMFORT AT MARCO EXIT SITE, REASSURED THIS CAN BE NORMAL, PT TOLERATING AMBULATION WELL.
--- NOTE | 2022-12-23 07:05 | NUR ---
PT'S CALLED REQUESTING PAIN MED FOR , RN TO BEDSIDE, PT RESTING WITH EYES CLOSED, AWAKEN TO NAME, STATES HE WOULD LIKE PAIN MED, FOR PAIN 6/10, MEDICATED WITH MORPHINE 2MG IV, CPOX IN PLACE AND OXYGEN PLACED ON PT.
--- NOTE | 2022-12-23 07:41 | NUR ---
RECEIVED REPORT FROM [facility] NURSE. PT APPEARS TO BE SLEEPING COMFORTABLY, RESPIRTAIONS EVEN AND REGULAR. AT BEDSIDE.
--- NOTE | 2022-12-23 08:00 | NUR ---
PT ASSESSMENT AND MEDICATION ADMINISTRATION COMPLETED. PT IS A/O, RESPIRATIONS EVEN AND REGULAR. RATES PAIN 4/10. STATES HE STILL HAS NOT HAD ANY FLATULANCE OR BM. AT BEDSIDE.
[2022-12-23 09:44] VITALS: BP 134/88
--- NOTE | 2022-12-23 09:49 | NUR ---
ROUNDED ON PT. VS COMPLETED. PT IS A/O, RESPIRATIONS EVEN AND REGULAR. HAS MOVED FROM CHAIR BACK TO BED. STATES HE IS NOW PASSING GAS. IV FLUIDS RUNNING.
--- NOTE | 2022-12-23 11:26 | NUR ---
PT UP WALKING IN HALLWAY.
--- NOTE | 2022-12-23 11:39 | NUR ---
PT CALLED FOR ASSISTANCE WHILE HAVING BM. PT HAD BM AND STATES WHEN WIPING HE NOTICED BLOOD. REPORTS LONG HISTORY OF HEMORRHOIDS. MODERATE AMOUNT OF LISSY RED BLOOD NOTED TO TOILET PAPER. STATES THAT HE HAS REPORTED THIS TO DR BEYER. WILL NOTIFY MD WHEN HE IS OUT OF SURGERY. PT IS A/O, DENIES FEELING DIZZY OR SOB. PT IS NOW BACK IN BED.
--- NOTE | 2022-12-23 12:11 | NUR ---
PT UP TO BATHROOM. PASSING QUITE A BIT OF GAS. HAD ANOTHER SMALL BM. NO BLOOD NOTED WITH THIS BM. MD NOTIFIED OF BLOOD WITH PREVIOUS BM. NEW ORDERS TO ADVANCE PT TO FULL LIQUID DIET.
--- NOTE | 2022-12-23 14:30 | NUR ---
PT A/O, UP WALKING IN THE HALLWAY WITH MOM.
[2022-12-23 14:56] VITALS: BP 138/92
--- NOTE | 2022-12-23 15:30 | NUR ---
ROUNDED ON PT. PT IS LYING IN BED, A/O. DENIES NEEDS/COMPLAINTS ATT. STATES THAT HE WAS ABLE TO EAT MASHED POTATOES AND TOLERATED WELL. AT BEDSIDE.
[2022-12-23 17:59] VITALS: BP 141/93
--- NOTE | 2022-12-23 18:00 | NUR ---
ROUNDED ON PT. DENIES NEEDS/COMPLAINTS ATT.
--- NOTE | 2022-12-23 19:08 | NUR ---
MARCO DRAIN EMPTIED. PT DENIES NEEDS/COMPLAINTS ATT. REMAINS AT BEDSIDE.
--- NOTE | 2022-12-23 19:15 | NUR ---
SHIFT REPORT RECEIVED FROM SARITHA TRISTAN, PT RESTING WITH EYES CLOSED IN BED, AT BEDSIDE.
--- NOTE | 2022-12-23 20:05 | NUR ---
PT AWAKE AND ALERT, UP AMB IN DELONG WITH , GAIT STEADY, PLANS TO COME BACK TO ROOM AFTER ANOTHER LAP IN DELONG.
[2022-12-23 20:25] VITALS: BP 140/88
--- NOTE | 2022-12-23 20:25 | NUR ---
PT BACK TO ROOM AND BACK TO BED, VS, I/O AND ASSESSMENT DONE, RT MEDICATION GIVEN IN ADDITION TO SCHEDULED PERCOCET FOR ABDOMINAL PAIN 01/05 AFTER PUDDING EATEN. MARCO EMPTIED FOR 10ML SERO SANG FLUID. SCDS PLACED ON PT.
--- NOTE | 2022-12-23 21:11 | NUR ---
PT RESTING IN BED, ATIVAN 2MG PO GIVEN PER ORDER, PT WITHOUT OTHER REQUESTS, ATTEMPTING TO REST.
--- NOTE | 2022-12-23 22:00 | NUR ---
PT C/O NAUSEA WHICH CAME ON A FEW MINUTES AGO, NO EMESIS, MEDICATED WITH ZOFRAN 8MG IV PER ORDER, SL TO LEFT FOREARM FLUSHES WELL, SITE INTACT.
--- NOTE | 2022-12-23 22:30 | NUR ---
CPOX HEARD ALARMING, PT ASLEEP, OXY SATS 80-82, PT AWAKEN AND PLACED ON 2L/NC OF OXYGEN, HOB REMAINS ELEVATED APPROX 40 DEGREES, SATS UP TO 94%, PT WITHOUT FURTHER COMPLAINTS.
--- NOTE | 2022-12-24 00:37 | NUR ---
PT NOTED AWAKE BRIEFLY TALKING WITH , OXYGEN REPLACED, FRESH WATER GIVEN, PT RESTING WITHOUT REQUESTS AT THIS TIME.
--- NOTE | 2022-12-24 01:46 | NUR ---
RN CALLED TO ROOM, PT REQUESTING MEDICATION FOR HEADACHE AND DESIRES TO HAVE ATIVAN AT THIS TIME, PT MEDICATED WITH ATIVAN THEN SNACK GIVEN, SCHEDULED PERCOCET GIVEN A FEW MINUTES LATER, OXYGEN IN PLACE, PT WITHOUT COMPLAINTS. PT ATTEMPTING TO REST.
--- NOTE | 2022-12-24 04:15 | NUR ---
PT ASLEEP, OXYGEN SAT 84-86%, PT AWAKEN BRIEFLY, OXYGEN REPLACED AT 2 L/NC, WITH SATS COMING UP TO 96%,
[2022-12-24 06:15] VITALS: BP 122/82
--- NOTE | 2022-12-24 06:15 | NUR ---
PT ASLEEP, RESP EVEN AND REG, AWAKEN FOR VS, ASSESSMENT AND I/O DONE, MARCO OUT 35ML SERO SANG, PT BACK TO SLEEP, OXYGEN REPLACED.
--- NOTE | 2022-12-24 07:15 | NUR ---
REPORT FROM ADULT DAYCARE COORDINATOR LIZ. AZALEA
--- NOTE | 2022-12-24 07:55 | NUR ---
MORNING ASSESSMENT DONE. PATIENT IS SITTING UP IN BED TO EAT BREAKFAST, RATES ABD PAIN 5-6/10 AND GIVEN PO PERCOCET WITH FOOD. MIDLINE INCISION DRESSING IS INTACT WITH OLD SHADOWING. MARCO TUBE STRIPPED, WHICH PATIENT REPORTS AN UNCOMFORTABLE FEELING. SPOUSE IN ROOM. NO OTHER NEEDS AT THIS TIME.
--- NOTE | 2022-12-24 09:41 | NUR ---
MORNING MEDICATIONS GIVEN. PATIENT RATES ABD PAIN 0/10. ENCOURAGED PATIENT TO AMBULATE IN HALLWAY.
[2022-12-24 09:52] VITALS: BP 130/97
--- NOTE | 2022-12-24 10:11 | NUR ---
PATIENT IS UP AMBULATING MULTIPLE LAPS IN HALLWAY.
--- NOTE | 2022-12-24 11:03 | NUR ---
PATIENT IS IN BED, SLEEPING WITH REGULAR RESPIRATIONS. SPOUSE IN ROOM WITH PATIENT.
--- NOTE | 2022-12-24 11:15 | NUR ---
PATIENT AND HIS WALKED THREE LAPS AROUND MED SURG. PATIENT ALSO BRUSED HIS TEETH AND WASHED HIS FACE ALSO CHANGED HIS GOWN. HE WOULD LIKE TO TAKE A SHOWER BUT HE HAS TO WAIT UNTIL HE TALKES TO THE DOCTOR FIRST. IF HE CAN'T THAN HE WILL DO A BED BATH. BED LINENS WERE CHANGED.
[2022-12-24] MEDS ORDERED: OXYCODONE-ACET1 EAC1 PO (12:44)
[2022-12-24] MEDS ORDERED: NICOTINE PATCH1 EACH TD (12:44)
--- NOTE | 2022-12-24 13:05 | OR ---
[facility] [address], [place] [address] Signed DATE OF OPERATION: 12/21/2022 SURGEON: Maryann Beyer MD PREOPERATIVE DIAGNOSIS: Recurrent acute sigmoid diverticulitis. POSTOPERATIVE DIAGNOSES: Recurrent acute sigmoid diverticulitis; chronic phlegmon and coiled sigmoid. PROCEDURES: 1. Sigmoid colectomy with side-to-end (Modi) coloproctostomy. 2. Splenic flexure mobilization. ANESTHESIA: General endotracheal, Alhaji Marie PATIENT ACCOUNT LIAISON and preoperative bilateral TAP block. INDICATIONS: This 42-year-old white man is a patient of Lara Lerner. He has had recurrent bouts of acute diverticulitis proved by CT scan and clinical findings. Notably, he underwent laparoscopic appendectomy by ak in 2020. His recurrent bouts of sigmoid diverticulitis have been increasingly problematic. He did undergo colonoscopy, which showed no evidence of neoplasm, only diverticular changes. He has associated constipation with his lower abdominal pain as well. He is admitted at this time to undergo sigmoid colectomy. He understands the risk of bleeding, infection, anastomotic failure, recurrent disease and other unforeseen complications. FINDINGS: The patient has relatively obese abdominal wall and correspondingly fair amount of intra-abdominal fat associated with the mesentery, omentum and so on. Nevertheless, safe colectomy was performed. Dissection began in the distal descending colon and carried to the mid to upper rectum. A side-to-end (Modi) coloproctostomy was accomplished without problem. The liver was palpably and visibly normal and the gallbladder had no palpable stones. Small bowel so forth could be told as normal. DESCRIPTION OF PROCEDURE: The patient was brought to the operating room and given a general endotracheal anesthetic. A Dubon catheter was placed. He had undergone a complete bowel prep including oral antibiotics and preoperative antibiotics as well. The abdomen was prepared with a chlorhexidine solution and draped sterilely. Heparin was subcutaneously Electronically Signed By: MARYANN BEYER MD 12/24/22 1305 PATIENT NAME: AMY MCCOY OPERATIVE REPORT DATE OF : 76 REPORT #: [id number] PHYSICIAN: MARYANN BEYER MD PCP: LARA LERNER PAC REPORT IS CONFIDENTIAL AND NOT TO BE RELEASED WITHOUT AUTHORIZATION [facility] [address], [place] [address] Signed administered and sequential compression device stockings were used. Preoperative antibiotic Ancef and Flagyl had been given. The abdomen was prepared and draped sterilely and an incision was made intending to limit the low midline incision below the umbilicus extending to the symphysis pubis. There is surprisingly thick abdominal pannus was noted. Dissection was carried through the subcutaneous tissue, incising the midline fascia and ultimately entering the abdomen. The properitoneal space had a fair amount of fatty layer as well. Intra-abdominal inspection showed a dense phlegmon chronically inflamed in the low pelvis to the left and a coiled spring type sigmoid was noted. Palpation showed the liver to be normal and gallbladder as well. A Bookwalter retractor was affixed to the table and small bowel was packed to the right side of the abdomen. Once good exposure was noted, electrocautery was used to free the sigmoid colon from the lateral pelvic wall. There are adhesions forming the coil spring type sigmoid and rectosigmoid. Palpation revealed a dense chronic phlegmon in the region of the distal sigmoid. The rectum appeared normal. The white line of Toldt was incised with electrocautery and with meticulous care, the sigmoid mesentery was reflected to the midline. An incision was taken cephalad on the white line of Toldt and splenic flexure mobilization undertaken. The mesentery to the left colon sigmoid was particularly fatty. An area deemed appropriate for resection in the distal descending colon was identified and site marked with a suture. The mesentery was incised with electrocautery and blunt dissection undertaken identifying vascular pedicles. Application of tonsil clamps and on occasion heavier Randi clamps. The vascular pedicles were doubly secured with 0 silk ties. As the space within the deep pelvis was limited related to his obesity, transection of the distal descending colon was undertaken with 60 mm PATY stapling device. This allowed for more mobility to allow for further dissection of the sigmoid mesentery. Peritoneal layers were incised and bulky and thick fatty rectosigmoid mesentery mobilized more fully resecting it in continuity with the thickened sigmoid itself. The area demarcated as upper to mid rectum was identified well past the coalescence of the taenia coli and designated as site for anastomosis. The mesentery was secured not only with silk ties, but also silk sutures as appropriate and few small clips applied as well. The mid rectum was freed from its fatty covering and a right angle bowel clamp was applied to the upper to mid rectum. The area was isolated with laparotomy sponges and a clamp applied proximal to the right angle bowel clamp and the rectum transected with prostate scissors. Specimen was passed off the table and subsequently examined and found to have diverticular changes but no sign of neoplasm. Further mobility of the left colon was undertaken with blunt electrocautery dissection providing for splenic flexure mobilization. This allowed the colon to be essentially tension-free down to the pelvis. A side-to-end coloproctostomy was then undertaken in a two-layer technique with Electronically Signed By: MARYANN BEYER MD 12/24/22 2039 PATIENT NAME: AMY MCCOY OPERATIVE REPORT DATE OF : 76 REPORT #: [id number] PHYSICIAN: MARYANN BEYER MD PCP: LARA LERNER PAC REPORT IS CONFIDENTIAL AND NOT TO BE RELEASED WITHOUT AUTHORIZATION [facility] [address], [place] [address] Signed interrupted 3-0 silk suture. The anastomosis appeared to be airtight. Irrigation was undertaken after changing of glove and gowns as per protocol. The mesenteric defect was reapproximated with running 3-0 silk suture so as to avoid transmesenteric herniation in the future. Through a left lower quadrant incision, a 7 mm flat Alejandro drain was passed into the depths of the pelvis, not far from the anastomosis itself. The small bowel was returned to its natural anatomic configuration and omentum applied over the abdominal contents. The midline fascia was reapproximated with running bidirectional #1 PDS suture. Skin and subcutaneous tissue was irrigated with saline solution and the skin closed with running subcuticular 3-0 Vicryl. Steri-Strips were applied as was an Acticoat dressing. The patient tolerated the procedure well. Blood loss was well less than 100 mL in aggregate. The operation was somewhat challenging on the basis of his obesity, but it was accomplished safely.. MD KIRSTEN Zee/EARL /[id number] cc: PÉREZ De La Torre Copies: ~ Electronically Signed By: MARYANN BEYER MD 12/24/22 1305 PATIENT NAME: AMY MCCOY OPERATIVE REPORT DATE OF : 76 REPORT #: [id number] PHYSICIAN: MARYANN BEYER MD PCP: LARA LERNER PAC REPORT IS CONFIDENTIAL AND NOT TO BE RELEASED WITHOUT AUTHORIZATION
--- NOTE | 2022-12-24 13:26 | NUR ---
PATIENT GIVEN DISCHARGE INSTRUCTIONS. RIGHT ARM IV D/C'D WITH CATHETER INTACT.
--- NOTE | 2022-12-24 13:32 | NUR ---
PATIENT GOT TO GO HOME SO HE WILL TAKE A SHOWER AT HOME.
== END 2022-12-24 13:30 | disposition home or self-care (01) | DRG 331 ==
LOC: DSVR 12-21 06:55 → MS 12-21 07:30
PROVIDERS: ADMIT Surgery; ATTEND Surgery
PROC: 0DBN0ZZ Excision of Sigmoid Colon, Open Approach (ICD-10-PCS; 2022-12-21)
PROC: 0D1N0ZP Bypass Sigmoid Colon to Rectum, Open Approach (ICD-10-PCS; principal; 2022-12-21 08:30)
DX: K57.20 Diverticulitis of large intestine with perforation and abscess without bleeding (principal); F41.9 Anxiety disorder, unspecified; I10 Essential (primary) hypertension; F17.200 Nicotine dependence, unspecified, uncomplicated; E66.9 Obesity, unspecified; Z88.0 Allergy status to penicillin; Z88.8 Allergy status to other drugs, medicaments and biological substances; Z88.6 Allergy status to analgesic agent; Z91.011 Allergy to milk products; Z68.31 Body mass index [BMI] 31.0-31.9, adult
CPT/HCPCS: 36415; 74018; 76942; 80048; 85025; 94762; A9270-GY; J0131; J0330; J0690; J1100; J1170; J1644; J1720; J1885; J2001; J2060; J2270; J2370; J2405; J2704; J3010; J7121

== ENCOUNTER 2023-08-16 05:55 | Day surgery (SDC) | payer BC ==
[2023-08-14 09:48] VITALS: BP 129/84
[~2023-08-16] VITALS: Ht 167.6 cm; Wt 95.5 kg
[~2023-08-16 05:55] MED LIST changes: +OXYCODONE-ACET1 EAC1 PO
[2023-08-16 06:18] VITALS: BP 125/85
[2023-08-16] MEDS ORDERED: CEPHALEXIN500 MG PO (06:27)
[2023-08-16] MEDS ORDERED: CIPROFLOXACIN500 MG PO (06:27)
[2023-08-16] MEDS ORDERED: OMEPRAZOLE20 MG PO (06:28)
--- NOTE | 2023-08-16 07:27 | NUR ---
ROUNDS. PT EXPRESSED NERVOUSNESS AND DISLIKE OF SURGERY IN GENERAL; CONSTENTED TO PRAYER. PROVIDED HOSPITALITY; LISTENED EMPATHETICALLY; NORMALIZED EXPERIENCE; PROVIDED PRAYER.
[2023-08-16] MEDS ORDERED: ACETAMINOPHEN500 MG PO (09:27)
[2023-08-16] MEDS ORDERED: OXYCODON-ACETA1 EAC2 PO (09:27)
--- NOTE | 2023-08-16 09:45 | NUR ---
PT ARRIVES TO UNIT FROM PACU VIA STRETCHER. PT IS A&O AND ASKING QUESTIONS APPROPRIATELY. PT REPORTS PAIN IS 6/10 AT THIS TIME AND STATES WOULD LIKE PRN PAIN MED, CRACKERS/JELLO/ICE WATER PROVIDED. SMALL AMOUNT OF SS DRAINAGE FROM X4 LAP SITES, ALL STERI STRIPS INTACT. PT USING SUPPORT PILLOW FOR COUGHING/DEEP BREATHING. PT TOLERATING ORALS WITHOUT DIFFICULTY SWALLOWING, PRN PAIN MED GIVEN (SEE EMAR). REPORT RECEIVED FROM VICK TRISTAN, AT BEDSIDE. CALL LIGHT WITHIN REACH, NO FURTHER NEEDS AT THIS TIME.
[2023-08-16 09:46] VITALS: BP 126/77
--- NOTE | 2023-08-16 10:33 | NUR ---
IN PT ROOM FOR PAIN EVAL. PT STATES PAIN HAS INCREASED TO 7/10, TITRATED TO MAX DOSE OF 2 TABLETS OF PRN PERCOCET (SEE EMAR). PT STATES NEED TO URINE VOID, PT STANDBY ASSIST TO RESTROOM FOR 250 ML OF URINE OUTPUT. PT HAS STEADY GAIT AND REPORTS NO NAUSEA/DIZZINESS W/AMBULATION. NO ACUTE CHANGES FROM PREVIOUS SURGICAL SITE ASSESSMENT POST AMBULATION. CALL LIGHT WITHIN REACH, NO FURTHER NEEDS AT THIS TIME.
[2023-08-16 10:45] VITALS: BP 122/77
--- NOTE | 2023-08-16 10:46 | NUR ---
08/16/23 Rosa Elena Castro Nikita 0914- PT ARRIVES TO PACU, SEMI BERGERON POSITION. O2 AT 6L PER MASK, LR INFUSING TO RH IV. PT AWAKE BUT VERY DROWSY AND C/O PAIN. DENIES NAUSEA. PT HAS 4 LAP SITES WITH STERI STRIPS IN PLACE WITH BLOOD SHADOWING FROM PLACEMENT. NO ACTIVE DRAINAGE. PT GIVEN A PILLOW TO SPLINT ABD DUE TO INTERMITTENT COUGHING. ABD SOFT, NON DISTENDED. ALL MONITORS IN PLACE, WILL CONTINUE TO MONITOR. 0923- PT MOVED TO ROOM AIR AT THIS TIME. C/O MOUTH FEELING DRY. 0925- PT MEDICATED PER ORDERS AND ICE CHIPS PROVIDED. TOLERATING WELL. 0940- PT USING PILLOW TO SPLINT ABD, REPORTS PAIN HAS IMPROVED AND TOLERABLE. DENIES NAUSEA. NO NEW DRAINAGE ON STERI STRIPS. VITAL SIGNS STABLE. 0945- PT BACK TO ROOM 4 IN DAY SURGERY, ALERT AND ANSWERING QUESTIONS APPROPRIATELY. LR INFUSING TO RH IV. REPORTS PAIN TOLERABLE, AT BEDSIDE, AND REPORT GIVEN TO KIKI TRISTAN AT BEDSIDE. ASSESSED SURGICAL SITES AND DRESSING WITH KIKI AT BEDSIDE, CARE OF PT TURNED OVER AT THIS TIME.
--- NOTE | 2023-08-16 11:25 | NUR ---
IN PT ROOM FOR ASSESSMENT AND VS. PT REPORTS PAIN HAS DECREASED TO 5/10 AND STATES THIS IS MINOR PAIN IN RT SHOULDER. EDUCATED PT REGARDING GAS USED FOR INFLATION OF ABDOMEN AND SHOULDER PAIN THAT OCCURS THIS GAS MOVES OUT OF THE BODY, PT STATES VERBAL UNDERSTANDING AT THIS TIME. PT STATES HE FEELS COMFORTABLE GOING HOME AT THIS TIME. IN ROOM W/PT AT THIS TIME GETTING DRESSED. CALL LIGHT WITHIN REACH.
[2023-08-16 11:27] VITALS: BP 123/70
--- NOTE | 2023-08-16 11:40 | NUR ---
IN PT ROOM FOR DISCHARGE EDUCATION, PT STATES VERBAL UNDERSTANDING AND NO FURTHER QUESTIONS AT THIS TIME. IV DC'ED, WNL, GAUZE/COBAN IN PLACE. PT OFF OF UNIT VIA WC TO PASSENGER SIDE OF VEHICLE, STANDBY ASSIST BY THIS RN. PT STATES NO FURTHER NEEDS AT THIS TIME. ALL BELONGINGS IN PT POSSESSION AT THIS TIME.
--- NOTE | 2023-08-17 09:15 | EKG ---
[facility] [address] [facility] [place] [address] Signed Normal sinus rhythm Normal ECG When compared with ECG of 19-DEC-2022 09:23, No significant change was found Confirmed by FLO AGUILERA MD ([id number]) on 08/17/2023 9:15:10 AM Electronically Signed By: FLO AGUILERA 08/17/23914 PATIENT NAME: AMY MCCOY HUSAM Electrocardiogram DATE OF : 76 PHYSICIAN: FLO AGUILERA REPORT #: [id number] REPORT IS CONFIDENTIAL AND NOT TO BE RELEASED WITHOUT AUTHORIZATION
--- NOTE | 2023-08-20 21:10 | OR ---
[facility] [address], [place] [address] Signed DATE OF OPERATION: 08/16/2023 SURGEON: Maryann Beyer MD PREOPERATIVE DIAGNOSES: 1. 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 2. History of sigmoid resection for intractable diverticular disease. POSTOPERATIVE DIAGNOSES: 1. 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 2. History of sigmoid resection for intractable diverticular disease. PROCEDURES: 1. Laparoscopic cholecystectomy with intraoperative cholangiogram. 2. Surgeon-directed fluoroscopy. ANESTHESIA: Lele Fermin, ONLINE AFFILIATE MARKETING MANAGER and local 10 mL of 0.25% Marcaine with epinephrine. INDICATION: This 43-year-old white man has had episodes of progressive right upper abdominal pain particularly following meals and fatty food ingestion. He is evaluated in 2018 with a gallbladder ultrasound, which was normal and a CCK-HIDA test which showed an ejection fraction of 30% with reproduction of his symptoms. He was considered to be equivocal in his issue of biliary colic on the basis of his prior evaluation by Dr. Kenny Kendall. He in the past year underwent sigmoid resection by me for intractable diverticulitis problems. He has recovered from that quite fully. He has worsening symptoms of right upper abdominal pain particularly following meals. He has a family history with biliary disease requiring cholecystectomy as well. He is admitted at this time. most recently has included a repeat ultrasound which does not show stones or sludge in the gallbladder. I did not repeat the CCK-HIDA test as the clinical symptoms are quite consistent with biliary disease and his previous CCK-HIDA test was clinically positive at that time. He is admitted at this time to undergo cholecystectomy preferred by a laparoscopic approach. He understands the risk of bleeding, infection, bile duct injury, need for open procedure and most importantly failure to cure his symptoms entirely. Understanding this, he wished to proceed. FINDINGS: Electronically Signed By: MARYANN BEYER MD 01/23/24 2110 PATIENT NAME: AMY MCCOY OPERATIVE REPORT DATE OF : 76 REPORT #: [id number] PHYSICIAN: MARYANN BEYER MD PCP: LARA LERNER PAC REPORT IS CONFIDENTIAL AND NOT TO BE RELEASED WITHOUT AUTHORIZATION [facility] [address], [place] [address] Signed The patient has a fair amount of abdominal obesity. The infraumbilical incision was still able to be employed though it coincided with his low midline incision. There were a few interloop adhesions related to previous recent surgery, but nothing problematic. The gallbladder itself was chronically inflamed. The liver was markedly fatty infiltrated without sign of inflammation proper. The cholangiogram was entirely normal. The gallbladder once excised showed attenuation of the mucosa of the gallbladder with no sign of stones or cholesterolosis and certainly no neoplasm. DESCRIPTION OF PROCEDURE: The patient was brought to the operating room, given a general endotracheal anesthetic. Preoperative antibiotic Ancef was given. Sequential compression device stockings were used and heparin subcutaneously administered. The abdomen was clipped and prepared with chlorhexidine solution and draped sterilely. The previous midline incision extended somewhat above the umbilicus. Given his body habitus, an approach to the infraumbilical site was deemed most appropriate. Using an open Tang cannula technique, the peritoneal cavity was easily entered and a balloon type Tang trocar placed. Insufflation of the abdomen was undertaken with carbon dioxide gas to a level of 14 mmHg. Intra-abdominal inspection showed no sign of ascites or carcinomatosis. There were few interloop adhesions in the lower abdomen. No sign of profound adhesions. The upper abdomen showed a fatty liver and the gallbladder was partially obscured from view, but did show chronic inflammatory change. The table was placed in a head up, [id number] position. Three additional trocars were placed in usual configuration in the subxiphoid, right midclavicular, and right anterior axillary line. The gallbladder was grasped and elevated cephalad. Due to the bulky liver, the gallbladder was grasped more inferiorly allowing for reasonable exposure of the infundibulum. Using blunt electrocautery dissection with meticulous care, the cystic duct was dissected free additionally identifying the cystic artery which was small and easily from the surrounding tissue. A clip was applied across the gallbladder cystic duct junction as were clips across the cystic artery and cystic artery was divided providing excellent visualization of the infundibulum and the cystic duct itself. A transverse choledochotomy was made in the cystic duct. Egress of clear bile was noted. Using the Lucas type cholangiocatheter system, intraoperative cholangiography was undertaken under surgeon directed fluoroscopy. Free flow of contrast was noted in the biliary tree with prompt emptying into the duodenum. The biliary tree was not dilated and showed no filling defects or other problem. The catheter was removed. The cystic duct was triply clipped and divided and the gallbladder was then dissected free in a retrograde fashion using electrocautery. Minimal entry to the gallbladder was noted with some spillage of bile but no stones and the gallbladder was placed in an endobag and then extracted through the infraumbilical port site without problem. It was opened on the back table and found to have thin mucosa. No sign of cholesterolosis. No sign of neoplasm or stones. Irrigation was undertaken of the subhepatic space. Excess irrigation fluid was suctioned free. There was no sign of bile leak, bleeding, or other problems. The Electronically Signed By: MARYANN BEYER MD 08/20/23 8081 PATIENT NAME: AMY MCCOY OPERATIVE REPORT DATE OF : 76 REPORT #: [id number] PHYSICIAN: MARYANN BEYER MD PCP: LARA LERNER PAC REPORT IS CONFIDENTIAL AND NOT TO BE RELEASED WITHOUT AUTHORIZATION [facility] [address] [place], [place] [address] Signed trocars were removed under direct visualization showing no sign of bleeding. The infraumbilical fascial incision was reapproximated with interrupted 0 Vicryl suture and additionally a running 0 PDS suture. A 10 mL of 0.25% Marcaine with epinephrine was injected into the trocar sites. The skin was then closed with interrupted 3-0 Vicryl and Steri-Strips were applied. He was ultimately extubated and transferred to the recovery room in good condition having suffered no complication. Sponge, needle, and instrument counts were reported as correct x3. MD KIRSTEN Zee/EARL /[id number] cc: Maryann Beyer MD Copies: MARYANN BEYER MD ~ Electronically Signed By: MARYANN BEYER MD 08/20/23 2110 PATIENT NAME: AMY MCCOY OPERATIVE REPORT DATE OF : 76 REPORT #: [id number] PHYSICIAN: MARYANN BEYER MD PCP: LARA LERNER PAC REPORT IS CONFIDENTIAL AND NOT TO BE RELEASED WITHOUT AUTHORIZATION
== END 2023-08-16 11:40 | disposition home or self-care (01) ==
LOC: DS 05:55
PROVIDERS: ATTEND Surgery
PROC: 0FT44ZZ Resection of Gallbladder, Percutaneous Endoscopic Approach (ICD-10-PCS; principal; 2023-08-16 07:30)
DX: K81.1 Chronic cholecystitis (principal); I10 Essential (primary) hypertension; K21.9 Gastro-esophageal reflux disease without esophagitis
CPT/HCPCS: 00790; 74300; 93005; 93010; J0131; J0690; J1100; J1644; J2001; J2405; J2704; J3010; J3475; J3490; J7121; Q9967